=== PATIENT | male | born 1990 | race Caucasian/White ===

== ENCOUNTER 2017-05-02 20:21 | Emergency (ER) | payer SELFPAY ==
[2017-05-02 22:06] VITALS: BP 150/95
== END 2017-05-02 22:06 | disposition home or self-care (01) ==
LOC: ED 20:21
DX: S61.211A Laceration without foreign body of left index finger without damage to nail, initial encounter (principal); W26.8XXA Contact with other sharp object(s), not elsewhere classified, initial encounter; Y93.89 Activity, other specified; Y99.8 Other external cause status; Y92.89 Other specified places as the place of occurrence of the external cause